=== PATIENT | male | born 1945 | race Two or more races ===

== ENCOUNTER 2016-11-03 16:46 | Emergency (ER) | payer MEDICARE, OTHER ==
[~2016-11-03] VITALS: Ht 188 cm; Wt 104.3 kg
[2016-11-03 16:50] VITALS: BP 128/71
[2016-11-03] MEDS ORDERED: OLANZAPINE10 MG ORAL (16:52)
[2016-11-03] MEDS ORDERED: CRESTOR10 M2 ORAL (16:52)
[2016-11-03] MEDS ORDERED: DEPAKOTE ER500 MG ORAL (16:52)
[2016-11-03] MEDS ORDERED: NORMODYNE100 MG ORAL (16:52)
[2016-11-03] MEDS ORDERED: SINEMET 25-1001 EAC1 ORAL (16:54)
[2016-11-03] MEDS ORDERED: PANTOPRAZOLE SO40 MG ORAL (16:54)
--- NOTE | 2016-11-03 17:28 | Emergency Room Report ---
History of Present Illness General Chief Complaint: Generalized Weakness Source: Patient Present Illness HPI 71 YOM BIBEMS with accidental trip and fall at [facility], witnessed by [employer] staff member who had been accompanying him. Patient hit right side of head. Denies headache, LOC, any other pain. History of DM, HTN. Has no other complaints. Fingerstick 210 in ED. Allergies: Coded Allergies: No Known Allergies (Unverified , 11/03/16) Patient History Past Medical History: DM, HTN Past Surgical History: none Pertinent Family History: none Social History: Denies: alcohol use, drug use, smoking Immunizations: UTD Reviewed Nursing Documentation: PMH: Agreed, PSxH: Agreed Nursing Documentation-PMH Hx Hypertension: Yes Hx Diabetes: Yes Review of Systems All Other Systems: negative except mentioned in HPI Physical Exam Vital Signs Date Time Temp Pulse Resp B/P Pulse Ox O2 Delivery O2 Flow Rate FiO2 11/03/16 16:41 98.1 86 16 136/77 95 Sp02 EP Interpretation: reviewed, normal General Appearance: normal inspection, well appearing, no apparent distress, alert, GCS 15, non-toxic Head: normocephalic, other - Abrasions to right side of head Eyes: bilateral eye EOMI, bilateral eye PERRL ENT: normal ENT inspection, hearing grossly normal, normal voice Neck: normal inspection, full range of motion, supple, no bony tend Respiratory: normal inspection, lungs clear, normal breath sounds, no respiratory distress, no retraction, no wheezing Cardiovascular #1: regular rate, rhythm, no edema Gastrointestinal: normal inspection, normal bowel sounds, non tender, soft, no guarding, no hernia Genitourinary: no CVA tenderness Musculoskeletal: normal inspection, back normal, normal range of motion, Keila' s Sign negative Neurologic: normal inspection, alert, oriented x3, responsive, house player III-XII nml as tested, motor strength/tone normal, speech normal Psychiatric: normal inspection, judgement/insight normal, mood/affect normal Skin: normal inspection, normal color, no rash Lymphatic: normal inspection Medical Decision Making Diagnostic Impression: Primary Impression: Fall Qualified Codes: W19.XXXA - Unspecified fall, initial encounter Additional Impression: Abrasion head ER Course CT head negative for acute traumatic injury VSS. Afebrile. Fingerstick glucose~200 Despite baby sitter note re "weakness", patient has no focal neuro deficits in extremities Otherwise asymptomatic Low suspicion for acute infectious, metabolic, or cardiac ischemic process warranting further lab testing, imaging or admission DC back to Board & Care Last Vital Signs Date Time Temp Pulse Resp B/P Pulse Ox O2 Delivery O2 Flow Rate FiO2 11/03/16 16:41 98.1 86 16 136/77 95 Status: improved Disposition: HOME, SELF-CARE Referrals: MIGUEL ANGEL JACQUES (PCP) MARIANN LOVE M.D. Nov 03, 2016 17:28
[2016-11-03 19:00] VITALS: BP 150/72
--- NOTE | 2016-11-05 08:52 | Diagnostic Imaging Report ---
Indication: Headache Technique: Contiguous 5 mm thick transaxial imaging of the head obtained in a Siemens Sensation [address] scanner. Soft tissue and bone windows generated. Total Dose length Product (DLP): [address] Dose Index Volume (CTDIvol): 70.38 mGy Comparison: none Findings: Exam is significantly limited by motion. Moderate, nonspecific, white matter hypoattenuation is noted throughout the brain consistent with chronic small vessel disease. There is no obvious midline shift, edema, acute hemorrhage, mass effect, or obvious abnormal extra-axial fluid collections. Bones and extra osseous soft tissues are unremarkable. Impression: No acute intracranial bleed, mass effect or edema. Nonspecific white matter hypoattenuation probably due to chronic small vessel disease. Significant limitation due to motion. The CT scanner at [facility] is accredited by the [employer] and the scans are performed using dose optimization techniques as appropriate to a performed exam including Automatic Exposure control.
== END 2016-11-03 19:00 | disposition home or self-care (01) ==
LOC: EDBD 16:46 → EMR 17:15
DX: S00.91XA Abrasion of unspecified part of head, initial encounter (principal); W01.0XXA Fall on same level from slipping, tripping and stumbling without subsequent striking against object, initial encounter; Y93.9 Activity, unspecified; Y92.512 Supermarket, store or market as the place of occurrence of the external cause; E11.9 Type 2 diabetes mellitus without complications; I10 Essential (primary) hypertension
CPT/HCPCS: 70450; 99282

== ENCOUNTER 2017-11-12 13:30 | Inpatient (IN) | payer MEDICARE, OTHER ==
[~2017-11-12] VITALS: Ht 180.3 cm; Wt 74.1 kg
[~2017-11-12 13:30] MED LIST: CRESTOR10 M2 ORAL; DEPAKOTE ER500 MG ORAL; NORMODYNE100 MG ORAL; OLANZAPINE10 MG ORAL; PANTOPRAZOLE SO40 MG ORAL; SINEMET 25-1001 EAC1 ORAL
[2017-11-12 13:36] VITALS: BP 137/78
[2017-11-12 14:05] VITALS: BP 116/83
[2017-11-12 14:05] LABS: BASOPHILS % (AUTO) 0.7 % (0.0-2.0); EOSINOPHILS % (AUTO) 0.6 % (0.0-3.0); HEMATOCRIT 38.3 % (42.0-52.0); HEMOGLOBIN 12.6 G/DL (14.2-18.0); LYMPHOCYTES % (AUTO) 6.7 % (20.0-45.0); MEAN CORPUSCULAR VOLUME 98 FL (80-99); MONOCYTES % (AUTO) 9.7 % (1.0-10.0); NEUTROPHILS % (AUTO) 82.3 % (45.0-75.0); PLATELET COUNT 446 K/UL (150-450); RED BLOOD COUNT 3.93 M/UL (4.70-6.10); RED CELL DISTRIBUTION WIDTH 10.8 % (11.6-14.8); WHITE BLOOD COUNT 17.4 K/UL (4.8-10.8)
--- NOTE | 2017-11-12 14:07 | Emergency Room Report ---
History of Present Illness General Chief Complaint: Altered Level of Consciousness Source: EMS Present Illness HPI Patient presents from nursing/boarding care facility Patient himself is nonverbal History of present illness is significantly limited Paramedics reported change in mental status for over the past 5-6 days There was a report that patient is usually ambulatory At this time patient is significantly altered Unable to respond to verbal command he does withdraw from physical stimuli Allergies: Coded Allergies: No Known Allergies (Unverified , 11/03/16) Patient History Limited by: medical condition Past Medical History: see triage record Pertinent Family History: unable to obtain Reviewed Nursing Documentation: PMH: Agreed; PSxH: Agreed Nursing Documentation-PMH Past Medical History: No History, Except For Hx Hypertension: Yes Hx Diabetes: Yes Review of Systems All Other Systems: limited - Other than the ones mentioned in the history of present illness all others are reviewed however they do stay limited due to the patient's mental status Physical Exam Vital Signs Date Time Temp Pulse Resp B/P (MAP) Pulse Ox O2 Delivery O2 Flow Rate FiO2 11/12/17 13:18 97.9 98 18 110/74 94 Room Air 97.9 Sp02 EP Interpretation: reviewed, normal General Appearance: mild distress - Patient appears lethargic, minimally responsive Head: normocephalic, atraumatic Eyes: bilateral eye PERRL ENT: dry mucus membranes Neck: supple, thyroid normal, no carotid bruits Respiratory: no retraction, no accessory muscle use, crackles - Both lower lobes Cardiovascular #1: regular rate, rhythm, no edema Gastrointestinal: non tender, soft Musculoskeletal: other - Patient moves upper extremity towards physical stimuli , however does not follow commands Neurologic: other - Significantly decreased GCS some minimal responsive physical stimuli Skin: other - Poor skin turgor Lymphatic: no adenopathy Medical Decision Making Diagnostic Impression: Primary Impression: Altered level of consciousness Additional Impressions: Encephalopathy Dehydration ER Course Multiple differentials considered including but not limited to infectious, neurological metabolic pathology Patient's white blood cell count is elevated however patient shows signs of hemoconcentration and dehydration X-ray was normal and the urine sample was clear I do not suspect meningitis in this patient possible medication reaction is also considered Patient requiring inpatient care , Labs Test 11/12/17 13:45 11/12/17 14:04 11/12/17 14:35 11/12/17 15:40 White Blood Count 17.4 K/UL (4.8-10.8) Red Blood Count 3.93 M/UL (4.70-6.10) Hemoglobin 12.6 G/DL (14.2-18.0) Hematocrit 38.3 % (42.0-52.0) Mean Corpuscular Volume 98 FL (80-99) Mean Corpuscular Hemoglobin 32.0 PG (27.0-31.0) Mean Corpuscular Hemoglobin Concent 32.8 G/DL (32.0-36.0) Red Cell Distribution Width 10.8 % (11.6-14.8) Platelet Count 446 K/UL (150-450) Mean Platelet Volume 6.0 FL (6.5-10.1) Neutrophils (%) (Auto) 82.3 % (45.0-75.0) Lymphocytes (%) (Auto) 6.7 % (20.0-45.0) Monocytes (%) (Auto) 9.7 % (1.0-10.0) Eosinophils (%) (Auto) 0.6 % (0.0-3.0) Basophils (%) (Auto) 0.7 % (0.0-2.0) Lactic Acid Level 1.40 mmol/L (0.4-2.0) Troponin I 0.000 ng/mL (0.000-0.056) Urine Color Yellow Urine Appearance Clear Urine pH 5 (4.5-8.0) Urine Specific Rogers 1.020 (1.005-1.035) Urine Protein 2+ (NEGATIVE) Urine Glucose (UA) Negative (NEGATIVE) Urine Ketones Negative (NEGATIVE) Urine Occult Blood 2+ (NEGATIVE) Urine Nitrite Negative (NEGATIVE) Urine Bilirubin Negative (NEGATIVE) Urine Urobilinogen Normal MG/DL (0.0-1.0) Urine Leukocyte Esterase Negative (NEGATIVE) Urine RBC 5-10 /HPF (0 - 0) Urine WBC 0-2 /HPF (0 - 0) Urine Squamous Epithelial Cells Occasional /LPF Urine Amorphous Sediment Few /LPF (NONE) Urine Bacteria Occasional /HPF (NONE) Arterial Blood pH 7.469 (7.350-7.450) Arterial Blood Partial Pressure CO2 33.2 mmHg (35.0-45.0) Arterial Blood Partial Pressure O2 85.9 mmHg (75.0-100.0) Arterial Blood HCO3 23.6 mmol/L (22.0-26.0) Arterial Blood Oxygen Saturation 96.9 % (92.0-98.0) Arterial Blood Base Excess 0.3 Ramirez Test Positive Sodium Level 139 MMOL/L (136-145) Potassium Level 5.6 MMOL/L (3.5-5.1) Chloride Level 106 MMOL/L (98-107) Carbon Dioxide Level 25 MMOL/L (21-32) Anion Gap 8 mmol/L (5-15) Blood Urea Nitrogen 48 mg/dL (7-18) Creatinine 1.4 MG/DL (0.55-1.30) Estimat Glomerular Filtration Rate mL/min (>60) Glucose Level 260 MG/DL (74-106) Calcium Level 9.4 MG/DL (8.5-10.1) Total Bilirubin 0.5 MG/DL (0.2-1.0) Aspartate Amino Transf (AST/SGOT) 37 U/L (15-37) Alanine Aminotransferase (ALT/SGPT) 17 U/L (12-78) Alkaline Phosphatase 42 U/L (46-116) Total Creatine Kinase 863 U/L (26-308) Creatine Kinase MB < 0.5 NG/ML (0.0-3.6) Creatine Kinase MB Relative Index 0.0 Pro-B-Type Natriuretic Peptide 107 pg/mL (0-125) Total Protein 7.6 G/DL (6.4-8.2) Albumin 2.1 G/DL (3.4-5.0) Globulin 5.5 g/dL Albumin/Globulin Ratio 0.4 (1.0-2.7) EKG Diagnostic Results Rate: normal Rhythm: NSR ST Segments: no acute changes Rhythm Strip Diag. Results EP Interpretation: yes Rate: 77 Rhythm: NSR, no PVC's, no ectopy Chest X-Ray Diagnostic Results Chest X-Ray Diagnostic Results : Chest X-Ray Ordered: Yes # of Views/Limited/Complete: 1 View Indication: Chest Pain EP Interpretation: Yes Interpretation: no consolidation, no effusion, no pneumothorax Impression: No acute disease Electronically Signed by: Yeyo Lakhani DO Last Vital Signs Date Time Temp Pulse Resp B/P (MAP) Pulse Ox O2 Delivery O2 Flow Rate FiO2 11/12/17 13:18 97.9 98 18 110/74 94 Room Air 97.9 Status: improved Disposition: ADMITTED INPATIENT Condition: Serious Yeyo Lakhani DO Nov 12, 2017 14:06
[2017-11-12 14:37] LABS: APPEARANCE,URINE CLEAR; BILIRUBIN, URINE NEGATIVE (NEGATIVE); COLOR,URINE YELLOW; GLUCOSE, URINE (UA) NEGATIVE (NEGATIVE); KETONES,URINE NEGATIVE (NEGATIVE); LEUKOCYTE ESTERASE ,URINE NEGATIVE (NEGATIVE); NITRITE,URINE NEGATIVE (NEGATIVE); PH,URINE 5 (4.5-8.0); PROTEIN,URINE 2+ (NEGATIVE); UROBILINOGEN,URINE NORMAL MG/DL (0.0-1.0)
--- NOTE | 2017-11-12 14:46 | Diagnostic Imaging Report ---
Indication: Altered mental status Technique: spiral acquisitions obtained through the brain. Angled axial and coronal 5 x 5 mm slices were reconstructed. No IV contrast utilized. Radiation dose was minimized using automated exposure control Total dose length product 1494.93 mGycm. CTDIvol(s) 70.38 mGy Comparison: 11/03/2016 FINDINGS: No acute hemorrhage or edema. No mass effect or midline shift. There is age-related enlargement of the ventricles and extra axial CSF spaces. There is periventricular deep white matter ischemic change. Old lacunar infarcts are seen in the right manley radiata, and right thalamus, the left thalamus, the right side of the luis eduardo, and the right internal capsule. Normal ross-white differentiation. Visualized orbits are unremarkable. Visualized sinuses are unremarkable. Intact calvarium. IMPRESSION: Chronic and age-related changes. Negative for acute intracranial bleed or mass effect Multiple old infarcts, as described The CT scanner at [facility] is accredited by the [employer] and the scans are performed using protocols designed to limit radiation exposure to as low as reasonably achievable to attain images of sufficient resolution adequate for diagnostic evaluation noncontrast
[2017-11-12 14:57] VITALS: BP 125/72
[2017-11-12] MEDS ORDERED: LORAZEPAM1 MG ORAL (15:34)
[2017-11-12] MEDS ORDERED: RISPERDAL2 MG ORAL (15:38)
[2017-11-12] MEDS ORDERED: ASPIR 8181 MG ORAL (15:38)
[2017-11-12] MEDS ORDERED: CLOPIDOGREL75 MG ORAL (15:38)
[2017-11-12] MEDS ORDERED: CRESTOR10 M2 ORAL (15:38)
[2017-11-12] MEDS ORDERED: CICLODAN 0.77%544 GM TP (15:38)
[2017-11-12] MEDS ORDERED: ULTRAVATE TP (15:38)
[2017-11-12 16:05] LABS: ANION GAP 8 mmol/L (5-15); BLOOD UREA NITROGEN 48 mg/dL (7-18); CALCIUM 9.4 MG/DL (8.5-10.1); CARBON DIOXIDE 25 MMOL/L (21-32); CHLORIDE 106 MMOL/L (98-107); CREATININE 1.4 MG/DL (0.55-1.30); POTASSIUM 5.6 MMOL/L (3.5-5.1); SODIUM 139 MMOL/L (136-145)
[2017-11-12] MEDS ORDERED: Acetaminophen 650 MG SUPP RECTAL ONE (16:15)
[2017-11-12 16:19] LABS: ALANINE AMINOTRANSFERASE 17 U/L (12-78); ALBUMIN 2.1 G/DL (3.4-5.0); ALBUMIN/GLOBULIN RATIO 0.4 (1.0-2.7); ALKALINE PHOSPHATASE 42 U/L (46-116); ASPARTATE AMINO TRANSFERASE 37 U/L (15-37); BILIRUBIN,TOTAL 0.5 MG/DL (0.2-1.0); CKMB < 0.5 NG/ML (0.0-3.6); CREATINE KINASE 863 U/L (26-308)
--- NOTE | 2017-11-12 16:33 | Diagnostic Imaging Report ---
Indication: Chest pain Technique: One view of the chest Comparison: none Findings: Lungs and pleural spaces are clear. Heart size is normal. Impression: Negative
[2017-11-12 16:52] VITALS: BP 113/69
[2017-11-12] MEDS ORDERED: Nitroglycerin Subl 0.4mg tab SL PRN (19:30)
[2017-11-12] MEDS ORDERED: LORazepam Inj 2mg/ml 1ml IV PRN (19:30)
[2017-11-12] MEDS ORDERED: Acetaminophen 650 MG SUPP RECTAL PRN ×2 (19:30→20:00)
[2017-11-12 20:00] VITALS: BP 136/77
[2017-11-12] MEDS: Depakote ER 500mg tab ORAL SCH (20:56)
[2017-11-12] MEDS: Pantoprazole Inj IV SCH (20:56)
[2017-11-12] MEDS: Heparin 5000 units/ml inj SUBQ SCH (20:57)
[2017-11-12] MEDS ORDERED: Milk of Magnesia 30ml Ud ORAL PRN (21:00)
--- NOTE | 2017-11-12 21:15 | History and Physical Report ---
DATE OF ADMISSION: 11/12/2017 CHIEF COMPLAINT AND REASON FOR HOSPITALIZATION: The patient is a 72-year-old man admitted with dehydration, rhabdomyolysis, and confusion. HISTORY OF PRESENT ILLNESS: The patient lives in assisted living facility. He is taking psychiatric medications and is known to Dr. Otoole for whom I am covering today. The patient was sent as he is refusing to eat. He is nonverbal at this time and unable to give any further history. MEDICATIONS: Medications at the facility include Sinemet 25/100 one tablet t.i.d., labetalol 100 mg b.i.d., lorazepam 1 mg every 6 hours as needed for anxiety, Risperdal 2 mg dissolve in the mouth twice a day, Crestor 10 mg daily, Plavix 75 mg daily, aspirin 81 mg daily, Protonix 40 mg daily, ciclopirox gel to the feet b.i.d., halobetasol cream b.i.d., topically, lidocaine ointment topically, nitrofurantoin 100 mg b,.i.d. starting on 10/07/2017 14 pills only. PAST MEDICAL HISTORY/REVIEW OF SYSTEMS: The patient is unable to provide. PHYSICAL EXAMINATION: GENERAL: The patient is lying in bed and nonverbal. VITAL SIGNS: Temperature 99.7 rectal, pulse 83, respirations 16, and blood pressure 113/69. HEENT: He keeps his eyes tightly closed. Mouth is closed. It appears oral mucosa is dry. NECK: No adenopathy. LUNGS: Clear. HEART: Regular rhythm. No murmur. ABDOMEN: Soft without organomegaly or masses. EXTREMITIES: No edema, cyanosis, or clubbing. NEUROLOGIC: The patient refuses to speak. He appears arousable, but keeps his eyes tightly closed. He is withdrawn. There is increased tonus in all four extremities. There is paucity of movement, but he is able to move. There is no facial asymmetry. LABORATORY DATA: Review of pertinent labs show sodium 139, potassium 5.6, chloride ____, creatinine 1.4, and glucose 260. CPK is 863. Albumin is 2.1. White count is 17.4 and hemoglobin is 12.6. Urinalysis shows 2+ protein, 2+ occult blood, 5 to 10 red cells, and 0 to 2 white cells per high-power field. The liver enzymes are normal. IMPRESSION: 1. Dehydration. 2. Rhabdomyolysis. 3. Hyperkalemia. 4. 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 5. Schizophrenia. 6. Leukocytosis, etiology unclear. PLAN: The patient will be hydrated and started on empiric antibiotics. I will cut down his psychotropic medicines and see if his lethargy will improve. We will try to get psychiatric consultation. His condition is guarded. Riki Bond M.D. DR: DESTINY JOB#: [id number] CC:
[2017-11-12] MEDS: NovoLOG Insulin Flexpen SUBQ SCH (21:23)
[2017-11-12] MEDS: Piperacillin/Tazobactam 3.375 GM in D5W 110 ML IVPB SCH (22:06)
[2017-11-13] VITALS: BP 121/77
[2017-11-13 04:00] VITALS: BP 144/89
[2017-11-13 04:50] LABS: AMMONIA 16 umol/L (11-32)
[2017-11-13 04:55] LABS: BASOPHILS % (AUTO) 0.7 % (0.0-2.0); EOSINOPHILS % (AUTO) 2.2 % (0.0-3.0); HEMATOCRIT 33.7 % (42.0-52.0); HEMOGLOBIN 11.1 G/DL (14.2-18.0); MEAN CORPUSCULAR VOLUME 98 FL (80-99); MONOCYTES % (AUTO) 9.6 % (1.0-10.0); NEUTROPHILS % (AUTO) 78.5 % (45.0-75.0); PLATELET COUNT 429 K/UL (150-450); RED BLOOD COUNT 3.42 M/UL (4.70-6.10); RED CELL DISTRIBUTION WIDTH 11.4 % (11.6-14.8); WHITE BLOOD COUNT 14.8 K/UL (4.8-10.8)
[2017-11-13 05:02] LABS: ALANINE AMINOTRANSFERASE 27 U/L (12-78); ALBUMIN 2.2 G/DL (3.4-5.0); ALKALINE PHOSPHATASE 45 U/L (46-116); ANION GAP 11 mmol/L (5-15); ASPARTATE AMINO TRANSFERASE 24 U/L (15-37); BILIRUBIN,TOTAL 0.6 MG/DL (0.2-1.0); BLOOD UREA NITROGEN 47 mg/dL (7-18); CALCIUM 9.8 MG/DL (8.5-10.1); CARBON DIOXIDE 24 MMOL/L (21-32); CHLORIDE 106 MMOL/L (98-107); CREATININE 1.4 MG/DL (0.55-1.30); POTASSIUM 4.3 MMOL/L (3.5-5.1); SODIUM 141 MMOL/L (136-145)
[2017-11-13] MEDS: Piperacillin/Tazobactam 3.375 GM in D5W 110 ML IVPB SCH ×3 (05:38→22:15)
[2017-11-13] MEDS: NovoLOG Insulin Flexpen SUBQ SCH ×4 (05:41→20:40)
[2017-11-13 08:00] VITALS: BP 141/94
[2017-11-13] MEDS: LORazepam 1mg tab ORAL SCH ×3 (08:05→17:02)
[2017-11-13] MEDS: Depakote ER 500mg tab ORAL SCH ×2 (08:30→20:26)
[2017-11-13] MEDS: Pantoprazole Inj IV SCH (08:30)
[2017-11-13] MEDS: Heparin 5000 units/ml inj SUBQ SCH ×2 (08:31→20:38)
[2017-11-13 11:56] VITALS: BP 102/68
--- NOTE | 2017-11-13 15:45 | General Progress Note ---
Assessment/Plan Problem List: (1) Parkinsonian features ICD Codes: R25.9 - Unspecified abnormal involuntary movements SNOMED: 530480238 (2) Leukocytosis ICD Codes: D72.829 - Elevated white blood cell count, unspecified SNOMED: 917379154, 033508834 (3) Rhabdomyolysis ICD Codes: M62.82 - Rhabdomyolysis SNOMED: 457001744 (4) Schizophrenia ICD Codes: F20.9 - Schizophrenia, unspecified SNOMED: 45779301 (5) Dehydration ICD Codes: E86.0 - Dehydration SNOMED: 15921724 (6) Altered level of consciousness ICD Codes: R40.4 - Transient alteration of awareness SNOMED: 2119572 (7) Encephalopathy ICD Codes: G93.40 - Encephalopathy, unspecified SNOMED: 01071715 Assessment/Plan refusal to eat or drink, psychotic. on hospice at [facility] , case management associate to confirm , hydrate, dnr Subjective ROS Limited/Unobtainable: Yes Allergies: Coded Allergies: No Known Allergies (Unverified , 11/03/16) Objective Last 24 Hour Vital Signs Date Time Temp Pulse Resp B/P (MAP) Pulse Ox O2 Delivery O2 Flow Rate FiO2 11/13/17 12:00 78 11/13/17 11:56 98.4 75 20 102/68 99 Room Air 98.4 11/13/17 08:30 95 141/94 11/13/17 08:00 95 11/13/17 08:00 98.0 95 20 141/94 97 Room Air 98.0 11/13/17 04:00 79 11/13/17 04:00 98.4 97 20 144/89 97 Room Air 98.4 11/13/17 00:00 84 11/13/17 00:00 97.3 86 20 121/77 97 Room Air 97.3 11/12/17 20:56 92 136/77 11/12/17 20:00 93 11/12/17 20:00 97.2 92 22 136/77 96 Room Air 97.2 11/12/17 17:30 99.7 83 16 113/69 100 Room Air 99.7 11/12/17 16:52 99.7 83 16 113/69 100 Room Air 99.7 11/12/17 16:47 99.7 11/12/17 16:17 100.9 Intake and Output 11/12/17 11/13/17 19:00 07:00 Intake Total 1000 ml 757.58 ml Output Total 300 ml 625 ml Balance 700 ml 132.58 ml IV Total 1000 ml 757.58 ml Output Urine Total 300 ml 625 ml # Voids 1 Laboratory Tests 11/13/17 03:30: White Blood Count 14.8H, Red Blood Count 3.42L, Hemoglobin 11.1L, Hematocrit 33.7L, Mean Corpuscular Volume 98, Mean Corpuscular Hemoglobin 32.3H, Mean Corpuscular Hemoglobin Concent 32.8, Red Cell Distribution Width 11.4L, Platelet Count 429, Mean Platelet Volume 6.0L, Neutrophils (%) (Auto) 78.5H, Lymphocytes (%) (Auto) 9.0L, Monocytes (%) (Auto) 9.6, Eosinophils (%) (Auto) 2.2, Basophils (%) (Auto) 0.7, Sodium Level 141, Potassium Level 4.3, Chloride Level 106, Carbon Dioxide Level 24, Anion Gap 11, Blood Urea Nitrogen 47H, Creatinine 1.4H, Estimat Glomerular Filtration Rate , Glucose Level 194H, Calcium Level 9.8, Total Bilirubin 0.6, Aspartate Amino Transf (AST/SGOT) 24, Alanine Aminotransferase (ALT/SGPT) 27, Alkaline Phosphatase 45L, Ammonia 16, Total Protein 7.7, Albumin 2.2L, Globulin 5.5, Thyroid Stimulating Hormone (TSH ) 1.765, Cortisol AM Sample [Pending] Height (Feet): 5 Height (Inches): 11.00 Weight (Pounds): 163 General Appearance: other - eyes and mouth closed Neck: normal alignment Cardiovascular: normal rate Respiratory/Chest: lungs clear Abdomen: non tender Neurologic: unresponsive KINJAL BANGURA Nov 13, 2017 15:45
[2017-11-13 16:00] VITALS: BP 119/75
[2017-11-13 20:00] VITALS: BP 114/72
--- NOTE | 2017-11-13 22:27 | Consultation ---
History of Present Illness General Date patient seen: Nov 13, 2017 Chief Complaint: Altered Level of Consciousness Present Illness HPI The patient is a 72-year-old man admitted with dehydration, rhabdomyolysis, and confusion. the pt has been more lethargic and was not responding today . the charge nurse Arelis informed me today and Dr. Bond is requesting psych consult per his note . the pt was not arousable he is on multiple sedative psych meds. the pt is taking all meds Allergies: Coded Allergies: No Known Allergies (Unverified , 11/03/16) Medication History Scheduled Aspirin* (Aspir 81*), 81 MG ORAL DAILY, (Reported) Carbidopa/Levodopa 25-100 Mg* (Sinemet 25-100 Mg Tablet*), 1 TAB ORAL THREE TIMES A DAY, (Reported) Clopidogrel* (Clopidogrel*), 75 MG ORAL DAILY, (Reported) Divalproex Sodium* (Depakote Er*), 500 MG ORAL EVERY 12 HOURS, (Reported) Labetalol HCl (Labetalol HCl), 100 MG ORAL EVERY 12 HOURS, (Reported) Lorazepam* (Lorazepam*), 1 MG ORAL THREE TIMES A DAY, (Reported) Olanzapine (Olanzapine), 10 MG ORAL BID, (Reported) Pantoprazole* (Pantoprazole*), 40 MG ORAL DAILY, (Reported) Risperidone* (Risperdal*), 2 MG ORAL DAILY, (Reported) Rosuvastatin Calcium* (Crestor*), 10 MG ORAL HS, (Reported) Rosuvastatin Calcium* (Crestor*), 10 MG ORAL DAILY, (Reported) Miscellaneous Medications Ciclopirox/Skin Cleanser No.28 (Ciclodan 0.77% Cream Kit), 544 GM TP, (Reported) Halobetasol Propionate (Ultravate), 15 GM TP, (Reported) Patient History Limited by: medical condition History Provided By: Medical Record, PMD Healthcare decision maker Rolanda Villarreal Resuscitation status Full Code Advanced Directive on File No Past Medical/Surgical History Past Medical/Surgical History: (1) Dehydration (2) Altered level of consciousness (3) Leukocytosis (4) Rhabdomyolysis (5) Schizophrenia (6) Encephalopathy (7) Parkinsonian features Review of Systems Psychiatric: Reports: prior hx Physical Exam General Appearance: no apparent distress, lethargic Last 24 Hour Vital Signs Date Time Temp Pulse Resp B/P (MAP) Pulse Ox O2 Delivery O2 Flow Rate FiO2 11/13/17 20:38 86 114/72 11/13/17 20:00 98.4 86 16 114/72 97 Room Air 98.4 11/13/17 16:00 97.7 84 21 119/75 93 Room Air 97.7 11/13/17 16:00 68 11/13/17 12:00 78 11/13/17 11:56 98.4 75 20 102/68 99 Room Air 98.4 11/13/17 08:30 95 141/94 11/13/17 08:00 95 11/13/17 08:00 98.0 95 20 141/94 97 Room Air 98.0 11/13/17 04:00 79 11/13/17 04:00 98.4 97 20 144/89 97 Room Air 98.4 11/13/17 00:00 84 11/13/17 00:00 97.3 86 20 121/77 97 Room Air 97.3 Intake and Output 11/12/17 11/13/17 19:00 07:00 Intake Total 1000 ml 757.58 ml Output Total 300 ml 625 ml Balance 700 ml 132.58 ml IV Total 1000 ml 757.58 ml Output Urine Total 300 ml 625 ml # Voids 1 Laboratory Tests Test 11/13/17 03:30 White Blood Count 14.8 K/UL (4.8-10.8) H Red Blood Count 3.42 M/UL (4.70-6.10) L Hemoglobin 11.1 G/DL (14.2-18.0) L Hematocrit 33.7 % (42.0-52.0) L Mean Corpuscular Volume 98 FL (80-99) Mean Corpuscular Hemoglobin 32.3 PG (27.0-31.0) H Mean Corpuscular Hemoglobin Concent 32.8 G/DL (32.0-36.0) Red Cell Distribution Width 11.4 % (11.6-14.8) L Platelet Count 429 K/UL (150-450) Mean Platelet Volume 6.0 FL (6.5-10.1) L Neutrophils (%) (Auto) 78.5 % (45.0-75.0) H Lymphocytes (%) (Auto) 9.0 % (20.0-45.0) L Monocytes (%) (Auto) 9.6 % (1.0-10.0) Eosinophils (%) (Auto) 2.2 % (0.0-3.0) Basophils (%) (Auto) 0.7 % (0.0-2.0) Sodium Level 141 MMOL/L (136-145) Potassium Level 4.3 MMOL/L (3.5-5.1) Chloride Level 106 MMOL/L (98-107) Carbon Dioxide Level 24 MMOL/L (21-32) Anion Gap 11 mmol/L (5-15) Blood Urea Nitrogen 47 mg/dL (7-18) H Creatinine 1.4 MG/DL (0.55-1.30) H Estimat Glomerular Filtration Rate mL/min (>60) Glucose Level 194 MG/DL (74-106) H Calcium Level 9.8 MG/DL (8.5-10.1) Total Bilirubin 0.6 MG/DL (0.2-1.0) Aspartate Amino Transf (AST/SGOT) 24 U/L (15-37) Alanine Aminotransferase (ALT/SGPT) 27 U/L (12-78) Alkaline Phosphatase 45 U/L (46-116) L Ammonia 16 umol/L (11-32) Total Protein 7.7 G/DL (6.4-8.2) Albumin 2.2 G/DL (3.4-5.0) L Globulin 5.5 g/dL Thyroid Stimulating Hormone (TSH) 1.765 uiU/mL (0.358-3.740) Cortisol AM Sample Pending Height (Feet): 5 Height (Inches): 11.00 Weight (Pounds): 163 Medications Current Medications Medications (Trade) Dose Ordered Sig/Bhavin Route PRN Reason Start Time Stop Time Status Last Admin Dose Admin Acetaminophen (Tylenol) 650 mg Q4H PRN ORAL Mild Pain (Pain Scale 1-3) 11/12/17 19:30 12/12/17 19:29 Acetaminophen (Tylenol) 650 mg Q4H PRN ORAL T>100.5 11/12/17 19:30 12/12/17 19:29 Acetaminophen (Tylenol) 650 mg Q4H PRN RECTAL Mild Pain (Pain Scale 1-3) 11/12/17 19:30 12/12/17 19:29 Acetaminophen (Tylenol) 650 mg Q4H PRN RECTAL T>100.5 11/12/17 20:00 12/12/17 19:59 Dextrose (Dextrose 50%) 25 ml STAT PRN IV Hypoglycemia 11/12/17 19:30 12/12/17 19:29 Dextrose (Dextrose 50%) 50 ml STAT PRN IV Hypoglycemia 11/12/17 19:30 12/12/17 19:29 Divalproex Sodium (Depakote ER) 500 mg EVERY 12 HOURS ORAL 11/12/17 21:00 12/12/17 20:59 11/13/17 20:26 Heparin Sodium (Porcine) (Heparin 5000 units/ml) 5,000 units EVERY 12 HOURS SUBQ 11/12/17 21:00 12/12/17 20:59 11/13/17 20:38 Insulin Aspart (NovoLOG) BEFORE MEALS AND HS SUBQ 11/12/17 21:00 12/12/17 20:59 11/13/17 20:40 Labetalol HCl (Normodyne) 100 mg EVERY 12 HOURS ORAL 11/12/17 21:00 12/12/17 20:59 11/13/17 20:38 Lorazepam (Ativan 2mg/ml 1ml) 0.5 mg Q4H PRN IV For Anxiety 11/12/17 19:30 11/19/17 19:29 Lorazepam (Ativan) 1 mg THREE TIMES A DAY ORAL 11/13/17 09:00 11/20/17 08:59 Magnesium Hydroxide (Mom) 30 ml HSPRN PRN ORAL Constipation 11/12/17 21:00 12/12/17 20:59 Nitroglycerin (Ntg) 0.4 mg Q5M PRN SL Prn Chest Pain 11/12/17 19:30 12/12/17 19:29 Ondansetron HCl (Zofran) 4 mg Q6H PRN IVP Nausea & Vomiting 11/12/17 19:30 12/12/17 19:29 Pantoprazole (Protonix) 40 mg DAILY IV 11/12/17 20:00 12/12/17 19:59 11/13/17 08:30 Piperacillin Sod/ Tazobactam Sod 3.375 gm/Dextrose 110 ml @ 27.5 mls/hr Q8HR IVPB 11/12/17 22:00 11/19/17 21:59 11/13/17 22:15 Sodium Chloride 1,000 ml @ 150 mls/hr Q6H40M IV 11/13/17 18:45 12/13/17 18:44 11/13/17 18:46 Assessment/Plan Assessment/Plan schizophrenia encephalopathy jennifer [facility]inton dc ativan risperdal 1mg q 6hr Reagan Baum M.D. Nov 13, 2017 22:27
[2017-11-13] MEDS ORDERED: Nitroglycerin Subl 0.4mg tab SL PRN (22:35)
[2017-11-13] MEDS ORDERED: Acetaminophen 650 MG SUPP RECTAL PRN (23:30)
[2017-11-13] MEDS ORDERED: LORazepam Inj 2mg/ml 1ml IV PRN (23:30)
[2017-11-14] VITALS (7 sets, daily range): BP systolic 129–165; BP diastolic 68–84
[2017-11-14] MEDS ORDERED: Acetaminophen 650 MG SUPP RECTAL PRN
[2017-11-14] MEDS: Piperacillin/Tazobactam 3.375 GM in D5W 110 ML IVPB SCH ×3 (05:55→21:21)
[2017-11-14] MEDS: NovoLOG Insulin Flexpen SUBQ SCH ×4 (06:29→21:20)
[2017-11-14 08:01] LABS: BASOPHILS % (AUTO) 0.6 % (0.0-2.0); EOSINOPHILS % (AUTO) 5.7 % (0.0-3.0); HEMATOCRIT 31.4 % (42.0-52.0); HEMOGLOBIN 10.2 G/DL (14.2-18.0); LYMPHOCYTES % (AUTO) 13.6 % (20.0-45.0); MEAN CORPUSCULAR VOLUME 99 FL (80-99); MONOCYTES % (AUTO) 8.1 % (1.0-10.0); PLATELET COUNT 436 K/UL (150-450); RED BLOOD COUNT 3.19 M/UL (4.70-6.10); RED CELL DISTRIBUTION WIDTH 11.2 % (11.6-14.8)
[2017-11-14 08:02] LABS: ALANINE AMINOTRANSFERASE 23 U/L (12-78); ALBUMIN 1.9 G/DL (3.4-5.0); ALBUMIN/GLOBULIN RATIO 0.4 (1.0-2.7); ALKALINE PHOSPHATASE 41 U/L (46-116); ANION GAP 10 mmol/L (5-15); ASPARTATE AMINO TRANSFERASE 18 U/L (15-37); BILIRUBIN,TOTAL 0.5 MG/DL (0.2-1.0); BLOOD UREA NITROGEN 34 mg/dL (7-18); CALCIUM 9.2 MG/DL (8.5-10.1); CARBON DIOXIDE 25 MMOL/L (21-32); CHLORIDE 106 MMOL/L (98-107); CREATINE KINASE 237 U/L (26-308); CREATININE 1.1 MG/DL (0.55-1.30); POTASSIUM 3.9 MMOL/L (3.5-5.1); SODIUM 141 MMOL/L (136-145)
[2017-11-14] MEDS ORDERED: NS 500ML ONE (08:28)
[2017-11-14] MEDS ORDERED: 1/2 NS 1000ml IV ONE (08:28)
[2017-11-14] MEDS: LORazepam 1mg tab ORAL SCH ×3 (09:02→18:00)
[2017-11-14] MEDS: Pantoprazole Inj IV SCH (09:03)
[2017-11-14] MEDS: Depakote ER 500mg tab ORAL SCH ×2 (09:03→21:18)
[2017-11-14] MEDS: Heparin 5000 units/ml inj SUBQ SCH ×2 (09:06→21:19)
--- NOTE | 2017-11-14 11:16 | General Progress Note ---
Assessment/Plan Status: stable Assessment/Plan schizophrenia encephalopathy Risperdal 1mg q 6hr prn provided ro Subjective Date patient seen: Nov 14, 2017 Allergies: Coded Allergies: No Known Allergies (Unverified , 11/03/16) Subjective the pt is more alert today. Did not eat this morning. Not responding to questions. Objective Last 24 Hour Vital Signs Date Time Temp Pulse Resp B/P (MAP) Pulse Ox O2 Delivery O2 Flow Rate FiO2 11/14/17 09:03 82 144/76 11/14/17 08:23 98.6 82 17 144/76 98 Room Air 98.6 11/14/17 04:00 98.4 85 18 159/84 100 Room Air 98.4 11/14/17 00:00 98.3 82 22 148/77 99 Room Air 98.3 11/13/17 20:38 86 114/72 11/13/17 20:00 98.4 86 16 114/72 97 Room Air 98.4 11/13/17 16:00 97.7 84 21 119/75 93 Room Air 97.7 11/13/17 16:00 68 11/13/17 12:00 78 11/13/17 11:56 98.4 75 20 102/68 99 Room Air 98.4 Intake and Output 11/13/17 11/14/17 19:00 07:00 Intake Total 1727.5 ml 1160 ml Output Total 200 ml 600 ml Balance 1527.5 ml 560 ml IV Total 1727.5 ml 1160 ml Output Urine Total 200 ml 600 ml # Voids 1 Laboratory Tests 11/14/17 05:45: White Blood Count 9.0, Red Blood Count 3.19L, Hemoglobin 10.2L, Hematocrit 31.4L , Mean Corpuscular Volume 99, Mean Corpuscular Hemoglobin 31.9H, Mean Corpuscular Hemoglobin Concent 32.4, Red Cell Distribution Width 11.2L, Platelet Count 436, Mean Platelet Volume 5.5L, Neutrophils (%) (Auto) 72.0, Lymphocytes (%) (Auto) 13.6L, Monocytes (%) (Auto) 8.1, Eosinophils (%) (Auto) 5.7H, Basophils (%) (Auto) 0.6, Sodium Level 141, Potassium Level 3.9, Chloride Level 106, Carbon Dioxide Level 25, Anion Gap 10, Blood Urea Nitrogen 34H, Creatinine 1.1, Estimat Glomerular Filtration Rate , Glucose Level 141H, Calcium Level 9.2, Total Bilirubin 0.5, Aspartate Amino Transf (AST/SGOT) 18, Alanine Aminotransferase (ALT/SGPT) 23, Alkaline Phosphatase 41L, Total Creatine Kinase 237, Total Protein 7.1, Albumin 1.9L, Globulin 5.2, Albumin/ Globulin Ratio 0.4L Height (Feet): 5 Height (Inches): 11.00 Weight (Pounds): 163 General Appearance: no apparent distress, alert, confused Reagan Lau M.D. Nov 14, 2017 11:16
--- NOTE | 2017-11-14 15:15 | Cardiology Report ---
APPROVED REPORT EKG Measurement Heart [id number] Normal sinus rhythm Possible Left atrial enlargement Septal infarct, age undetermined Abnormal ECG
--- NOTE | 2017-11-14 18:05 | General Progress Note ---
Assessment/Plan Problem List: (1) Parkinsonian features ICD Codes: R25.9 - Unspecified abnormal involuntary movements SNOMED: 275115366 (2) Leukocytosis ICD Codes: D72.829 - Elevated white blood cell count, unspecified SNOMED: 349944899, 878344079 (3) Rhabdomyolysis ICD Codes: M62.82 - Rhabdomyolysis SNOMED: 161384960 (4) Schizophrenia ICD Codes: F20.9 - Schizophrenia, unspecified SNOMED: 00106568 (5) Dehydration ICD Codes: E86.0 - Dehydration SNOMED: 07974223 (6) Altered level of consciousness ICD Codes: R40.4 - Transient alteration of awareness SNOMED: 4810380 (7) Encephalopathy ICD Codes: G93.40 - Encephalopathy, unspecified SNOMED: 82311005 Assessment/Plan refusal to eat or drink, psychotic. on hospice at and , bilingual case manager to confirm , hydrate, dnr--took some food and said HI 11/14 Subjective ROS Limited/Unobtainable: Yes Allergies: Coded Allergies: No Known Allergies (Unverified , 11/03/16) Objective Last 24 Hour Vital Signs Date Time Temp Pulse Resp B/P (MAP) Pulse Ox O2 Delivery O2 Flow Rate FiO2 11/14/17 16:00 98.2 79 20 165/79 98 Room Air 98.2 11/14/17 11:51 98.1 69 18 152/75 98 Room Air 98.1 11/14/17 09:03 82 144/76 11/14/17 08:23 98.6 82 17 144/76 98 Room Air 98.6 11/14/17 04:00 98.4 85 18 159/84 100 Room Air 98.4 11/14/17 00:00 98.3 82 22 148/77 99 Room Air 98.3 11/13/17 20:38 86 114/72 11/13/17 20:00 98.4 86 16 114/72 97 Room Air 98.4 Intake and Output 11/13/17 11/14/17 19:00 07:00 Intake Total 1727.5 ml 1160 ml Output Total 200 ml 600 ml Balance 1527.5 ml 560 ml IV Total 1727.5 ml 1160 ml Output Urine Total 200 ml 600 ml # Voids 1 Laboratory Tests 11/14/17 05:45: White Blood Count 9.0, Red Blood Count 3.19L, Hemoglobin 10.2L, Hematocrit 31.4L , Mean Corpuscular Volume 99, Mean Corpuscular Hemoglobin 31.9H, Mean Corpuscular Hemoglobin Concent 32.4, Red Cell Distribution Width 11.2L, Platelet Count 436, Mean Platelet Volume 5.5L, Neutrophils (%) (Auto) 72.0, Lymphocytes (%) (Auto) 13.6L, Monocytes (%) (Auto) 8.1, Eosinophils (%) (Auto) 5.7H, Basophils (%) (Auto) 0.6, Sodium Level 141, Potassium Level 3.9, Chloride Level 106, Carbon Dioxide Level 25, Anion Gap 10, Blood Urea Nitrogen 34H, Creatinine 1.1, Estimat Glomerular Filtration Rate , Glucose Level 141H, Calcium Level 9.2, Total Bilirubin 0.5, Aspartate Amino Transf (AST/SGOT) 18, Alanine Aminotransferase (ALT/SGPT) 23, Alkaline Phosphatase 41L, Total Creatine Kinase 237, Total Protein 7.1, Albumin 1.9L, Globulin 5.2, Albumin/ Globulin Ratio 0.4L Height (Feet): 5 Height (Inches): 11.00 Weight (Pounds): 163 General Appearance: no apparent distress, confused EENT: other - eyes closed Neck: normal alignment Cardiovascular: regular rhythm Respiratory/Chest: lungs clear Abdomen: non tender, soft Edema: no edema noted Arm (L), no edema noted Arm (R), no edema noted Leg (L), no edema noted Leg (R), no edema noted Pedal (L), no edema noted Pedal (R), no edema noted Generalized Neurologic: disoriented KINJAL BANGURA Nov 14, 2017 18:05
[2017-11-14] MEDS ORDERED: Milk of Magnesia 30ml Ud ORAL PRN (21:00)
[2017-11-15] VITALS: BP 119/67
[2017-11-15 04:00] VITALS: BP 121/69
[2017-11-15] MEDS: Piperacillin/Tazobactam 3.375 GM in D5W 110 ML IVPB SCH ×3 (05:37→22:17)
[2017-11-15] MEDS: NovoLOG Insulin Flexpen SUBQ SCH ×4 (06:20→22:23)
--- NOTE | 2017-11-15 07:59 | General Progress Note ---
Assessment/Plan Assessment/Plan AMS Multifactorial. Try to ambulate.Lighten sedatives. Subjective Allergies: Coded Allergies: No Known Allergies (Unverified , 11/03/16) Subjective Alert. No c/o Objective Last 24 Hour Vital Signs Date Time Temp Pulse Resp B/P (MAP) Pulse Ox O2 Delivery O2 Flow Rate FiO2 11/15/17 04:00 99.0 76 19 121/69 98 Room Air 99.0 11/15/17 00:00 99.1 74 18 119/67 99 Room Air 99.1 11/14/17 21:18 84 130/68 11/14/17 20:00 99.5 84 18 130/68 100 Room Air 99.5 11/14/17 18:57 84 129/72 11/14/17 16:00 98.2 79 20 165/79 98 Room Air 98.2 11/14/17 11:51 98.1 69 18 152/75 98 Room Air 98.1 11/14/17 09:03 82 144/76 11/14/17 08:23 98.6 82 17 144/76 98 Room Air 98.6 Intake and Output 11/14/17 11/15/17 19:00 07:00 Intake Total 1900 ml 1637.5 ml Output Total 600 ml 550 ml Balance 1300 ml 1087.5 ml Intake Oral 250 ml IV Total 1650 ml 1637.5 ml Output Urine Total 600 ml 550 ml Height (Feet): 5 Height (Inches): 11.00 Weight (Pounds): 163 Objective CV RR Lungs CTA Abd SNT. BS + E No CCE. Neuro confused. Increased tonus.+ tremor. Bedridden. Martita Otoole MD Nov 15, 2017 07:59
[2017-11-15 08:00] VITALS: BP 126/77
[2017-11-15] MEDS: LORazepam 1mg tab ORAL SCH ×3 (08:50→18:52)
[2017-11-15] MEDS: Depakote ER 500mg tab ORAL SCH ×2 (08:50→22:16)
[2017-11-15] MEDS: Pantoprazole Inj IV SCH (08:50)
[2017-11-15] MEDS: Heparin 5000 units/ml inj SUBQ SCH ×2 (08:53→22:23)
[2017-11-15 12:00] VITALS: BP 201/101
[2017-11-15] MEDS ORDERED: Labetalol 200mg tab ORAL SCH (13:00)
[2017-11-15] MEDS ORDERED: 1/2 NS 1000ml IV ONE (15:39)
[2017-11-15 16:00] VITALS: BP 168/93
[2017-11-15 20:00] VITALS: BP 128/57
--- NOTE | 2017-11-15 23:21 | General Progress Note ---
Assessment/Plan Status: stable Assessment/Plan schizophrenia encephalopathy Risperdal 1mg q 6hr prn provided ro Subjective Date patient seen: Nov 15, 2017 Neurologic/Psychiatric: Reports: anxiety, depressed Allergies: Coded Allergies: No Known Allergies (Unverified , 11/03/16) Subjective the pt is more alert today. Objective Last 24 Hour Vital Signs Date Time Temp Pulse Resp B/P (MAP) Pulse Ox O2 Delivery O2 Flow Rate FiO2 11/15/17 22:17 82 128/57 11/15/17 20:00 99.3 20 128/57 82 Room Air 99.3 11/15/17 16:00 97.9 94 17 168/93 96 Room Air 97.9 11/15/17 14:27 89 201/101 11/15/17 12:00 97.6 89 21 201/101 97 Room Air 97.6 11/15/17 08:51 80 126/77 11/15/17 08:00 97.1 80 20 126/77 97 Room Air 97.1 11/15/17 04:00 99.0 76 19 121/69 98 Room Air 99.0 11/15/17 00:00 99.1 74 18 119/67 99 Room Air 99.1 Intake and Output 11/14/17 11/15/17 19:00 07:00 Intake Total 1900 ml 1637.5 ml Output Total 600 ml 550 ml Balance 1300 ml 1087.5 ml Intake Oral 250 ml IV Total 1650 ml 1637.5 ml Output Urine Total 600 ml 550 ml Height (Feet): 5 Height (Inches): 11.00 Weight (Pounds): 163 General Appearance: no apparent distress, alert Reagan Lau M.D. Nov 15, 2017 23:21
[2017-11-16] VITALS: BP 118/68
[2017-11-16 04:00] VITALS: BP 137/72
[2017-11-16] MEDS: Piperacillin/Tazobactam 3.375 GM in D5W 110 ML IVPB SCH ×3 (06:06→21:21)
[2017-11-16] MEDS: NovoLOG Insulin Flexpen SUBQ SCH ×4 (06:10→20:45)
[2017-11-16 08:00] VITALS: BP 109/72
[2017-11-16] MEDS: LORazepam 1mg tab ORAL SCH ×3 (08:25→17:04)
[2017-11-16] MEDS: Depakote ER 500mg tab ORAL SCH (08:26)
[2017-11-16] MEDS: Heparin 5000 units/ml inj SUBQ SCH ×2 (08:26→20:45)
[2017-11-16] MEDS: Pantoprazole Inj IV SCH (10:50)
--- NOTE | 2017-11-16 10:53 | General Progress Note ---
Assessment/Plan Assessment/Plan AMS Multifactorial. Try to ambulate.Lighten sedatives. Subjective Allergies: Coded Allergies: No Known Allergies (Unverified , 11/03/16) Subjective Alert. No c/o Objective Last 24 Hour Vital Signs Date Time Temp Pulse Resp B/P (MAP) Pulse Ox O2 Delivery O2 Flow Rate FiO2 11/16/17 08:28 80 146/80 11/16/17 08:00 93.4 76 18 109/72 93.4 11/16/17 04:00 97.8 75 20 137/72 99 Room Air 97.8 11/16/17 00:00 97.5 75 20 118/68 99 Room Air 97.5 11/15/17 22:17 82 128/57 11/15/17 20:00 99.3 82 20 128/57 98 Room Air 99.3 11/15/17 16:00 97.9 94 17 168/93 96 Room Air 97.9 11/15/17 14:27 89 201/101 11/15/17 12:00 97.6 89 21 201/101 97 Room Air 97.6 Intake and Output 11/15/17 11/16/17 19:00 07:00 Intake Total 1995.0 ml 410.0 ml Output Total 800 ml Balance 1195.0 ml 410.0 ml Intake Oral 1080 ml IV Total 915.0 ml 410.0 ml Output Urine Total 800 ml # Voids 3 Height (Feet): 5 Height (Inches): 11.00 Weight (Pounds): 163 Objective BP was very high this am 200/100 CV RR Lungs CTA Abd SNT. BS + E No CCE. Neuro confused. Increased tonus.+ tremor. Bedridden. Martita Otoole MD Nov 16, 2017 10:53
[2017-11-16 12:00] VITALS: BP 119/63
[2017-11-16 16:13] VITALS: BP 142/75
[2017-11-16 20:00] VITALS: BP 143/75
[2017-11-16] MEDS: Valproic Acid 250mg/5ml Liquid ORAL SCH (20:44)
--- NOTE | 2017-11-16 22:09 | General Progress Note ---
Assessment/Plan Assessment/Plan schizophrenia encephalopathy Risperdal 1mg q 6hr prn provided ro Subjective Date patient seen: Nov 16, 2017 Allergies: Coded Allergies: No Known Allergies (Unverified , 11/03/16) Subjective the pt is manageable depakote ativan were restarted Objective Last 24 Hour Vital Signs Date Time Temp Pulse Resp B/P (MAP) Pulse Ox O2 Delivery O2 Flow Rate FiO2 11/16/17 20:44 78 143/75 11/16/17 20:00 99.1 78 19 143/75 100 Room Air 99.1 11/16/17 16:13 98.2 76 20 142/75 97 Room Air 98.2 11/16/17 12:00 98.2 85 20 119/63 Room Air 98.2 11/16/17 08:28 80 146/80 11/16/17 08:00 93.4 76 18 109/72 93.4 11/16/17 04:00 97.8 75 20 137/72 99 Room Air 97.8 11/16/17 00:00 97.5 75 20 118/68 99 Room Air 97.5 11/15/17 22:17 82 128/57 Intake and Output 11/15/17 11/16/17 19:00 07:00 Intake Total 1995.0 ml 560.0 ml Output Total 800 ml Balance 1195.0 ml 560.0 ml Intake Oral 1080 ml IV Total 915.0 ml 560.0 ml Output Urine Total 800 ml # Voids 3 Height (Feet): 5 Height (Inches): 11.00 Weight (Pounds): 163 Reagan Lau M.D. Nov 16, 2017 22:09
[2017-11-17] VITALS: BP 129/69
[2017-11-17 04:00] VITALS: BP 138/81
[2017-11-17] MEDS: Piperacillin/Tazobactam 3.375 GM in D5W 110 ML IVPB SCH (06:02)
[2017-11-17] MEDS: NovoLOG Insulin Flexpen SUBQ SCH ×4 (06:03→20:49)
[2017-11-17 08:00] VITALS: BP 145/86
[2017-11-17] MEDS ORDERED: NS 500ML ONE (09:00)
[2017-11-17] MEDS ORDERED: 1/2 NS 1000ml IV ONE (09:00)
[2017-11-17] MEDS: Valproic Acid 250mg/5ml Liquid ORAL SCH ×2 (10:07→20:46)
[2017-11-17] MEDS: Pantoprazole Inj IV SCH (10:07)
[2017-11-17] MEDS: LORazepam 1mg tab ORAL SCH ×3 (10:07→17:17)
[2017-11-17] MEDS: Heparin 5000 units/ml inj SUBQ SCH ×2 (10:09→20:47)
[2017-11-17 12:00] VITALS: BP 113/59
--- NOTE | 2017-11-17 12:30 | General Progress Note ---
Assessment/Plan Assessment/Plan AMS Multifactorial. Try to ambulate.Lighten sedatives. Subjective Allergies: Coded Allergies: No Known Allergies (Unverified , 11/03/16) Subjective Alert. No c/o Objective Last 24 Hour Vital Signs Date Time Temp Pulse Resp B/P (MAP) Pulse Ox O2 Delivery O2 Flow Rate FiO2 11/17/17 10:07 79 145/86 11/17/17 08:00 97.7 79 20 145/86 100 Room Air 97.7 11/17/17 04:00 97.4 75 20 138/81 100 Room Air 97.4 11/17/17 00:00 97.4 71 18 129/69 100 Room Air 97.4 11/16/17 20:44 78 143/75 11/16/17 20:00 99.1 78 19 143/75 100 Room Air 99.1 11/16/17 16:13 98.2 76 20 142/75 97 Room Air 98.2 Intake and Output 11/16/17 11/17/17 19:00 07:00 Intake Total 1320 ml 1680.0 ml Output Total 1000 ml 1800 ml Balance 320 ml -120.0 ml Intake Oral 420 ml IV Total 900 ml 1680.0 ml Output Urine Total 1000 ml 1800 ml # Bowel Movements 1 1 Height (Feet): 5 Height (Inches): 11.00 Weight (Pounds): 163 Objective BP was very high this am 200/100 CV RR Lungs CTA Abd SNT. BS + E No CCE. Neuro confused. Increased tonus.+ tremor. Bedridden. Martita Otoole MD Nov 17, 2017 12:30
[2017-11-17] MEDS: Piperacillin/Tazobactam 3.375 GM in NS 110 ML IVPB SCH ×2 (14:43→21:40)
[2017-11-17 16:00] VITALS: BP 112/67
[2017-11-17 20:00] VITALS: BP 129/64
[2017-11-18] VITALS: BP 117/58
[2017-11-18 04:00] VITALS: BP 120/60
[2017-11-18] MEDS: Piperacillin/Tazobactam 3.375 GM in NS 110 ML IVPB SCH ×2 (05:39→14:30)
[2017-11-18] MEDS: NovoLOG Insulin Flexpen SUBQ SCH ×3 (06:11→17:05)
[2017-11-18 08:00] VITALS: BP 137/72
[2017-11-18] MEDS: Valproic Acid 250mg/5ml Liquid ORAL SCH (08:58)
[2017-11-18] MEDS: LORazepam 1mg tab ORAL SCH ×3 (08:58→17:06)
[2017-11-18] MEDS: Heparin 5000 units/ml inj SUBQ SCH (09:00)
[2017-11-18 12:00] VITALS: BP 149/74
--- NOTE | 2017-11-18 15:22 | General Progress Note ---
Assessment/Plan Assessment/Plan AMS Multifactorial. Try to ambulate.Lighten sedatives. DC to B+c Subjective Allergies: Coded Allergies: No Known Allergies (Unverified , 11/03/16) Subjective Alert. No c/o Objective Last 24 Hour Vital Signs Date Time Temp Pulse Resp B/P (MAP) Pulse Ox O2 Delivery O2 Flow Rate FiO2 11/18/17 12:00 98.4 80 21 149/74 100 Room Air 98.4 11/18/17 08:59 86 137/72 11/18/17 08:00 98.1 86 22 137/72 99 Room Air 98.1 11/18/17 04:00 98.0 80 17 120/60 97 Room Air 98.0 11/18/17 00:00 98.1 82 21 117/58 100 Room Air 98.1 11/17/17 20:47 85 129/64 11/17/17 20:00 97.7 85 19 129/64 99 Room Air 97.7 11/17/17 16:00 98.3 73 20 112/67 100 Room Air 98.3 Intake and Output 11/17/17 11/18/17 19:00 07:00 Intake Total 2720.0 ml 1787.5 ml Output Total 650 ml 1750 ml Balance 2070.0 ml 37.5 ml Intake Oral 600 ml IV Total 2120.0 ml 1787.5 ml Output Urine Total 650 ml 1750 ml # Bowel Movements 1 Height (Feet): 5 Height (Inches): 11.00 Weight (Pounds): 163 Objective BP was very high this am 200/100 CV RR Lungs CTA Abd SNT. BS + E No CCE. Neuro confused. Increased tonus.+ tremor. Bedridden. Martita Otoole MD Nov 18, 2017 15:22
[2017-11-18 16:00] VITALS: BP 139/67
[2017-11-18 19:50] VITALS: BP 134/73
[2017-11-18] MEDS ORDERED: 1/2 NS 1000ml IV ONE (20:09)
--- NOTE | 2017-11-19 08:37 | Discharge Summary ---
Discharge Summary Discharge Summary _ DATE OF ADMISSION: 11/12/2017 DATE OF DISCHARGE: 11/18/2017 REASON FOR ADMISSION: 72 years old male with history of hypertension, diabetes, psychiatric history , was brought from the [facility], where he resided for altered mental status. Patient with DNR/DNI status and [facility] Patient refused to eat and was increasingly altered. Patient was sent for evaluation. In emergency department vital signs were stable. Laboratory workup revealed leukocytosis ,WBC 17.4 ABG was stable on room air. Troponin was negative. EKG revealed normal sinus rhythm. Potassium 5.6. BUN 48. Creatinine 1.4. CK 863. Ammonia level 16. Glucose 260. Urinalysis was negative for evidence of UTI. Chest x-ray revealed no acute cardiopulmonary pathology. 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 Patient admitted with diagnoses of altered mental status, dehydration, rhabdomyolysis ,hyperkalemia, Parkinsonian syndrome, schizophrenia, leukocytosis with unknown etiology. CONSULTANTS: psychiatrist [facility] COURSE: Patient was admitted. Patient started on IV hydration and empiric antibiotics. Renal parameters and electrolytes were closely monitored. Electrolytes were corrected as needed. Nephrotoxins were avoided. Blood cultures were negative. Urinalysis and chest x-ray were negative. Leukocytosis resolved, afebrile, antibiotic stopped Psychiatric evaluation was requested. Psychiatrist diagnosed patient with encephalopathy and schizophrenia and changed psychotropic medication regimen . Patient was off Depakote and Ativan and started on Risperdal only on as-needed basis. Reality orientation provided. Blood pressure was managed with beta evy. DVT and GI prophylaxis provided. Blood sugar was managed with sliding scale of insulin. Supportive care provided . Bowel regimen instituted. Montessori Program Director recommendations implemented in plan of care. Bedside swallow evaluation was done. Diet started as per speech therapist recommendation with aspiration/reflux precautions. . Speech therapist recommended video swallow evaluation as outpatient Patient was working with physical and occupational therapists. Mental status gradually improved to baseline. Renal parameters stabilized; BUN down to 34, creatinine down to 1.1. Electrolytes stable. TSH and cortisol within normal limits. CK down to 27. 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 DISCHARGE INSTRUCTIONS: Patient was discharged to [id number] to continue under hospice services. I have been assigned to dictate discharge summary for this account. I was not involved in the patient's management. Ana Keller NP Nov 19, 2017 08:37
[2017-11-19] MEDS ORDERED: Piperacillin/Tazobactam 3.375 GM in D5W 110 ML IVPB SCH (22:00)
== END 2017-11-18 20:10 | disposition hospice, home (50) | DRG 557 ==
LOC: EDBD 13:30 → EMR 14:22 → 2E 15:38 → EDBEDREQSVC 16:04 → EDBEDREQ 16:05 → 4E 11-13 22:09
DX: M62.82 Rhabdomyolysis (principal); G93.40 Encephalopathy, unspecified; G21.11 Neuroleptic induced parkinsonism; T50.995A Adverse effect of other drugs, medicaments and biological substances, initial encounter; E86.0 Dehydration; E87.5 Hyperkalemia; F20.9 Schizophrenia, unspecified; E11.9 Type 2 diabetes mellitus without complications; Z66 Do not resuscitate
CPT/HCPCS: 36415; 36600; 70450; 71045; 80053; 81003; 82140; 82533; 82550; 82553; 82803; 82962; 83605; 83880; 84443; 84484; 85025; 87040; 87081; 93005; 99285; J1815